=== PATIENT | female | born 1960 | race Caucasian/White ===

== ENCOUNTER 2017-03-18 10:18 | Outpatient (CLI) | payer OTHER ==
[~2017-03-18 10:18] MED LIST: ASPIRIN EC81 MG PO; FLUOXETINE HCL20 MG PO; LEVOTHYROXINE75 MCG PO; LIOTHYRONINE SO5 MCG PO; MIRALAX3350 NF PO; PERCOCET1 TA1 PO; TURMERIC450 MG; VISTARIL25 MG PO; VITAMIN D-31000 UNIT PO; WELLBUTRIN SR200 MG PO
--- NOTE | 2017-03-18 12:38 | DIAGNOSTIC IMAGING REPORT ---
PROCEDURE: CT ABD/PELVIS WITH CONTRAST CLINICAL INDICATION: CONSTIPATION; ABD PAIN TECHNIQUE: 125 ml of Isovue 300 were injected intravenously and axial images were obtained of the entire abdomen and pelvis with sagittal and coronal reformations. COMPARISON: CT abdomen/pelvis 12/02/2014. FINDINGS: ABDOMEN: Lung bases are clear. Heart size is normal. Bilateral breast implants. 1.3 cm cystic lesion (previously 5 mm) in the body of the pancreas contiguous with what appears to be a focally dilated duct. No abnormal enhancement. Liver, gallbladder, pancreas, spleen, adrenal glands and right kidney are normal. Small left renal cyst. Mildly tortuous aorta. Markedly increased stool throughout the large bowel. Small bowel is unremarkable. PELVIS: Appendix not visualized. The uterus, adnexa and bladder are normal. No free fluid or inflammatory changes. Grade 1 L5-S1 anterolisthesis and mild degenerative changes of the spine. IMPRESSION: 1. Slight progression 1.3 cm cystic lesion in the body of the pancreas. This may represent a small pseudocyst but a cystic neoplasm is a consideration. Correlate with LFTs and tumor markers. Recommend follow-up CT scan of the pancreas in 3-6 months. 2. Severe obstipation 3. Results discussed with Dr. Roland All CT scans at this facility use dose modulation, iterative reconstruction, and/or weight-based dosing when appropriate to reduce radiation dose to as low as reasonably achievable.
== END 2017-03-18 23:00 ==
LOC: CT SRH 10:18
DX: K59.00 Constipation, unspecified (principal); R10.9 Unspecified abdominal pain; K86.9 Disease of pancreas, unspecified